=== PATIENT | female | born 1960 | race African-American/Black ===

== ENCOUNTER 2016-11-15 20:46 | Emergency (ER) | payer MEDICAID ==
[~2016-11-15] VITALS: Ht 162.6 cm; Wt 55.0 kg
[2016-11-16 04:39] VITALS: BP 148/84
== END 2016-11-16 05:15 | disposition home or self-care (01) ==
LOC: ER 11-16 05:05
DX: H10.9 Unspecified conjunctivitis (principal); J32.9 Chronic sinusitis, unspecified; I10 Essential (primary) hypertension; F17.200 Nicotine dependence, unspecified, uncomplicated; Z98.890 Other specified postprocedural states
CPT/HCPCS: 99283